=== PATIENT | female | born 1990 | race Caucasian/White ===

== ENCOUNTER 2024-11-05 08:20 | Outpatient (CLI) | payer SELFPAY ==
[~2024-11-05 08:20] MED LIST: NO HOME MEDS
--- NOTE | 2024-11-05 11:41 | RADIOLOGY REPORT ---
PROCEDURE: MRI lumbar spine without contrast. INDICATION: RADICULOPATHY, LUMBAR REGION COMPARISON: None TECHNIQUE: MRI lumbar spine without intravenous contrast utilizing multiplanar, multisequence techni que. FINDINGS: The alignment of the lumbar spine vertebral bodies is preserved. Bone marrow signal is homogenous and unremarkable. The vertebral body heights are maintained. The intervertebral disc spaces are maintain ed in height and signal characteristics. The conus medullaris is normal in signal characteristics and terminates at the T12-L1 level. Paraspinal muscles are unremarkable. At the T12-L1 level, there is no evidence of central spinal canal or neuroforaminal stenosis. At the L1-L2 level, there is no evidence of central spinal canal or neuroforaminal stenosis. At the L2-L3 level, there is broad based disc bulge and small posterior annular fissure. No signific ant neural foraminal stenosis. At the L3-L4 level, there is no evidence of central spinal canal or neuroforaminal stenosis. At the L4-L5 level, there is no evidence of central spinal canal or neuroforaminal stenosis. At the L5-S1 level, there is no evidence of central spinal canal or neuroforaminal stenosis. Other: None. IMPRESSION: 1. Broad based disc bulge and small posterior annular fissure at L2-L3. No significant neural forami nal stenosis. No significant spinal stenosis.
== END 2024-11-05 23:59 | disposition home or self-care (01) ==
LOC: MRI02 08:20
PROVIDERS: ATTEND Family Medicine
DX: M51.16 Intervertebral disc disorders with radiculopathy, lumbar region (principal)
CPT/HCPCS: 72148